=== PATIENT | male | born 1970 ===

== ENCOUNTER → 2020-06-13 23:55 | Emergency (ER) | payer SELFPAY ==
[2020-07-18 14:05] LABS: HEMATOCRIT 47.3 % (42.0-52.0); HEMOGLOBIN 15.6 g/dl (13.5-17.5); MEAN CORPUSCULAR HEMOGLOBIN 30.6 pg (27.0-33.0); MEAN CORPUSCULAR VOLUME 92.7 fl (80.0-96.0); PLATELET COUNT, AUTOMATED 326 10^3/uL (150-450); WHITE BLOOD COUNT 7.3 10^3/uL (4.0-10.0)
[2020-07-20 10:49] LABS: ALT/SGPT 32 IU/L (0-32); BILIRUBIN,TOTAL 0.2 MG/DL (0.2-1.0); BLOOD UREA NITROGEN 14 MG/DL (7-18); CALCIUM LEVEL 8.2 MG/DL (8.5-10.1); CARBON DIOXIDE LEVEL 26 mmol/L (20-29); CHLORIDE LEVEL 110 MEQ/L (98-107); CREATININE FOR GFR 1.03 MG/DL (0.70-1.30); GLOMERULAR FILTRATION RATE > 60.0 (>56); GLUCOSE, FASTING 92 MG/DL (70-100); POTASSIUM SERUM 4.2 MEQ/L (3.5-5.1); SODIUM LEVEL 144 MEQ/L (136-145); TOTAL PROTEIN 8.1 GM/DL (6.4-8.2)
[2020-07-20 10:50] LABS: ACETAMINOPHEN LEVEL < 2.0 UG/ML (10.0-30.0); ETHYL ALCOHOL (ETHANOL) 0.218 % (0.000-0.010); SALICYLATE LEVEL < 1.7 MG/DL (5.0-30.0); THYROID STIMULATING HORMONE 0.716 uIU/ML (0.358-3.740)
== END | disposition home or self-care (01) ==
LOC: M ED 23:55
DX: Z04.6 Encounter for general psychiatric examination, requested by authority (principal); F43.0 Acute stress reaction; F17.200 Nicotine dependence, unspecified, uncomplicated; F10.129 Alcohol abuse with intoxication, unspecified; Z65.3 Problems related to other legal circumstances
CPT/HCPCS: 80053; 80307; 84443; 85027; 99284; G0480

== ENCOUNTER → 2020-07-07 | Outpatient (CLI) | payer SELFPAY | LOC: M OUTALCOH 08:00 | PROVIDERS: ATTEND Psychiatry & Neurology Addiction Medicine | DX: F10.20 Alcohol dependence, uncomplicated (principal) ==

== ENCOUNTER 2020-07-16 10:05 | Outpatient (RCR) | payer SELFPAY | END 2020-07-19 | LOC: M OUTALCOH 10:05 | PROVIDERS: ATTEND Psychiatry & Neurology Addiction Medicine | DX: F10.20 Alcohol dependence, uncomplicated (principal); F17.200 Nicotine dependence, unspecified, uncomplicated ==

== ENCOUNTER → 2020-08-18 | Outpatient (RCR) | payer MEDICAID, SELFPAY | LOC: M OUTALCOH 07-20 15:52 | PROVIDERS: ATTEND Psychiatry & Neurology Addiction Medicine | DX: F10.20 Alcohol dependence, uncomplicated (principal); F17.200 Nicotine dependence, unspecified, uncomplicated ==

== ENCOUNTER 2020-09-16 09:00 | Outpatient (RCR) | payer MEDICAID, SELFPAY | END 2020-09-18 | LOC: M OUTALCOH 09:00 | PROVIDERS: ATTEND Psychiatry & Neurology Addiction Medicine | DX: F10.20 Alcohol dependence, uncomplicated (principal); F17.200 Nicotine dependence, unspecified, uncomplicated ==

== ENCOUNTER 2020-10-07 09:00 | Outpatient (RCR) | payer MEDICAID | END 2020-10-18 | LOC: M OUTALCOH 09:00 | PROVIDERS: ATTEND Psychiatry & Neurology Addiction Medicine | DX: F10.20 Alcohol dependence, uncomplicated (principal); F17.200 Nicotine dependence, unspecified, uncomplicated ==

== ENCOUNTER → 2020-11-18 | Outpatient (RCR) | payer MEDICAID | LOC: M OUTALCOH 10-21 13:00 | PROVIDERS: ATTEND Psychiatry & Neurology Addiction Medicine | DX: F10.20 Alcohol dependence, uncomplicated (principal); F17.200 Nicotine dependence, unspecified, uncomplicated ==

== ENCOUNTER 2020-12-13 15:01 | Outpatient (RCR) | payer MEDICAID | END 2020-12-19 | LOC: M OUTALCOH 15:01 | PROVIDERS: ATTEND Psychiatry & Neurology Addiction Medicine | DX: F10.20 Alcohol dependence, uncomplicated (principal); F17.200 Nicotine dependence, unspecified, uncomplicated ==

== ENCOUNTER 2021-01-13 08:00 | Outpatient (RCR) | payer MEDICAID | END 2021-01-16 | LOC: M OUTALCOH 08:00 | PROVIDERS: ATTEND Psychiatry & Neurology Psychiatry | DX: F10.20 Alcohol dependence, uncomplicated (principal); F17.200 Nicotine dependence, unspecified, uncomplicated ==

== ENCOUNTER 2021-02-17 13:00 | Outpatient (RCR) | payer MEDICAID | END 2021-03-18 | LOC: M OUTALCOH 13:00 | PROVIDERS: ATTEND Psychiatry & Neurology Psychiatry | DX: F10.20 Alcohol dependence, uncomplicated (principal); F17.200 Nicotine dependence, unspecified, uncomplicated ==

== ENCOUNTER 2021-03-24 11:54 | Outpatient (RCR) | payer MEDICAID | END 2021-04-18 | LOC: M OUTALCOH 11:54 | PROVIDERS: ATTEND Psychiatry & Neurology Psychiatry | DX: F10.20 Alcohol dependence, uncomplicated (principal); F17.200 Nicotine dependence, unspecified, uncomplicated ==

== ENCOUNTER 2021-04-28 13:34 | Outpatient (RCR) | payer MEDICAID | END 2021-05-18 | LOC: M OUTALCOH 13:34 | PROVIDERS: ATTEND Psychiatry & Neurology Psychiatry | DX: F10.20 Alcohol dependence, uncomplicated (principal); F17.200 Nicotine dependence, unspecified, uncomplicated ==

== ENCOUNTER 2021-06-06 15:16 | Outpatient (RCR) | payer MEDICAID | END 2021-06-18 | LOC: M OUTALCOH 15:16 | PROVIDERS: ATTEND Psychiatry & Neurology Psychiatry | DX: F10.20 Alcohol dependence, uncomplicated (principal); F17.200 Nicotine dependence, unspecified, uncomplicated ==

== ENCOUNTER 2021-07-12 08:00 | Outpatient (RCR) | payer MEDICAID | END 2021-07-19 | LOC: M OUTALCOH 08:00 | PROVIDERS: ATTEND Psychiatry & Neurology Psychiatry | DX: F10.20 Alcohol dependence, uncomplicated (principal); F17.200 Nicotine dependence, unspecified, uncomplicated ==

== ENCOUNTER 2021-08-17 14:01 | Outpatient (RCR) | payer MEDICAID | END 2021-08-18 | LOC: M OUTALCOH 14:01 | PROVIDERS: ATTEND Psychiatry & Neurology Psychiatry | DX: F10.20 Alcohol dependence, uncomplicated (principal); F17.200 Nicotine dependence, unspecified, uncomplicated ==

== ENCOUNTER 2021-09-21 09:29 | Outpatient (RCR) | payer MEDICAID | END 2021-10-18 | LOC: M OUTALCOH 09:29 | PROVIDERS: ATTEND Psychiatry & Neurology Psychiatry | DX: F10.20 Alcohol dependence, uncomplicated (principal); F17.200 Nicotine dependence, unspecified, uncomplicated ==

== ENCOUNTER 2021-10-26 14:24 | Outpatient (RCR) | payer MEDICAID | END 2021-11-18 | LOC: M OUTALCOH 14:24 | PROVIDERS: ATTEND Psychiatry & Neurology Psychiatry | DX: F10.20 Alcohol dependence, uncomplicated (principal); F17.200 Nicotine dependence, unspecified, uncomplicated ==